=== PATIENT | female | born 1960 | race Caucasian/White ===

== ENCOUNTER → 2020-02-20 07:43 | Outpatient (CLI) | payer SELFPAY ==
--- NOTE | ~2020-02-20 | XR_ITS ---
XR femur RT min 2V DATE: 02/20/2020 08:15 INDICATION: Follow-up of enchondroma right femur TECHNIQUE: AP and lateral views COMPARISON: None FINDINGS: There are sclerotic densities of the central intercondylar and slightly supracondylar area of the distal femur. The appearance is most consistent with benign cartilaginous tumor or infarct. No prior radiographs are available for comparison. There is some calcification along the upper medial femoral condyle suggesting Esteban-Stieda disea se. There is tricompartment osteoarthritis with periarticular spurring at all compartments. There is loss of joint space height at the lateral compartment. No fracture or dislocation, periosteal reaction or bone destruction of the right femur is evident. Normal alignment at the right sacroiliac joint, pubic symphysis, right hip and knee joints. 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
== END ==
DX: D16.21 Benign neoplasm of long bones of right lower limb (principal); M17.11 Unilateral primary osteoarthritis, right knee
CPT/HCPCS: 73552